=== PATIENT | female | born 1945 | race Caucasian/White ===

== ENCOUNTER → 2023-11-27 | Outpatient (CLI) | payer MEDICARE, MEDICAID ==
[~2023-11-27] MED LIST: CIPR500T86 PO; TRAM50TA PO
[2023-11-27 16:05] LABS: HEMATOCRIT(ML) 44.7 % (36.0-46.0); HEMOGLOBIN 14.2 g/dL (12.0-15.0); MEAN CORP HGB 27.8 pg (26-34); MEAN CORP HGB CONCENTRATION 31.8 g/dL (33-36.5); MEAN CORP VOLUME 87.5 fL (78-100); RED BLOOD CELL 5.11 10^6/uL (4.00-5.20); RED CELL DISTRIBUTION WIDTH 15.6 % (11.5-14.5); WHITE BLOOD CELL 7.4 10^3/uL (4.5-11.0)
[2023-11-27 16:41] LABS: ALBUMIN(ML) 3.7 g/dL (3.4-5.0); ANION GAP 13.5; CARBON DIOXIDE 26.3 mmol/L (20.0-32); CREATININE SERUM 0.8 mg/dL (0.59-1.40); EST GFR, NON-AA 69.7 (>/=60); LDL/HDL RATIO 2.3; POTASSIUM 3.8 mmol/L (3.6-5.2)
== END | disposition home or self-care (01) ==
LOC: NPLAB 15:39
PROVIDERS: ATTEND Family Medicine
DX: G31.1 Senile degeneration of brain, not elsewhere classified (principal); Z79.899 Other long term (current) drug therapy
CPT/HCPCS: 36415; 80053; 80061; 82306; 83036; 84439; 84443; 85027

== ENCOUNTER 2024-11-29 10:34 | Emergency (ER) | payer MEDICARE, MEDICAID ==
[~2024-11-29] VITALS: Ht 165.1 cm; Wt 81.6 kg
[2024-11-29 10:54] LABS: BASOPHIL % 0.4 % (0.1-1.2); EOSINOPHIL % 0.4 % (0.0-5.0); HEMATOCRIT(ML) 48.7 % (36.0-46.0); HEMOGLOBIN 15.6 g/dL (12.0-15.0); LYMPHOCYTES # 2.52 10^3/uL1 (1.0-4.8); LYMPHOCYTES % 24.4 % (24.0-44.0); MEAN CORP HGB 27.5 pg (26-34); MEAN CORP VOLUME 85.9 fL (78-100); MONOCYTES # 1.2 10^3/uL (0.3-0.8); MONOCYTES % 11.4 % (5.0-12.0); NEUTROPHIL # 6.5 10^3/uL (1.8-7.7); PLATELET COUNT 290 10^3/uL (150-400); RED BLOOD CELL 5.67 10^6/uL (4.00-5.20); RED CELL DISTRIBUTION WIDTH 14.8 % (11.5-14.5); WHITE BLOOD CELL 10.3 10^3/uL (4.5-11.0)
[2024-11-29 11:00] VITALS: BP 133/55; PULSE 55; RESP 18; TEMP 98; O2SAT 99
[2024-11-29 11:02] LABS: +ADD MANUAL DIFF(NO CHRG) NO
[2024-11-29 11:02] LABS: LEUKOCYTE ESTERASE ,URINE TRACE (NEGATIVE); NITRATE,URINE POSITIVE (NEGATIVE)
[2024-11-29 11:03] LABS: APPEARANCE,URINE TURBID; UA COLOR YELLOW
[2024-11-29 11:07] LABS: ALBUMIN(ML) 3.2 g/dL (3.4-5.0); ALBUMIN/GLOBULIN RATIO 0.842; BUN/CREATININE RATIO 14.41 (10.0-20.0); CALCIUM 9.1 mg/dL (8.4-10.5); CARBON DIOXIDE 28.6 mmol/L (20.0-32); CREATININE SERUM 1.11 mg/dL (0.59-1.40); EST GFR, NON-AA 47.7 (>/=60); POTASSIUM 3.6 mmol/L (3.6-5.2)
[2024-11-29 11:08] VITALS: BP 133/55; PULSE 55; RESP 18; TEMP 98; O2SAT 99
[2024-11-29] MEDS ORDERED: NS 100ML 100 ML IV ONE (11:13)
[2024-11-29] MEDS ORDERED: ROCEPHIN ONE (11:13)
[2024-11-29] MEDS: ROCEPHIN 1,000 MG in NS 100ML 100 ML IV STA (11:15)
[2024-11-29 12:04] VITALS: BP 134/67; PULSE 63; RESP 18; TEMP 98; O2SAT 99
[2024-11-29] MEDS ORDERED: CEPH500C PO (12:07)
[2024-11-29] MEDS ORDERED: [UNRECOGNIZED DRUG - CODE] PO (12:07)
== END 2024-11-29 12:15 | disposition home or self-care (01) ==
LOC: ER 10:34 → EDBD 10:34 → ER 12:15
DX: N39.0 Urinary tract infection, site not specified (principal); M25.571 Pain in right ankle and joints of right foot; F03.90 Unspecified dementia, unspecified severity, without behavioral disturbance, psychotic disturbance, mood disturbance, and anxiety
CPT/HCPCS: 99284; 96365; 87086; 73610; 80053; 85025; 36415; 81001; J0696 ×2; 87077; 87186